=== PATIENT | female | born 1995 | race Caucasian/White ===

== ENCOUNTER 2019-09-23 12:39 | Emergency (ER) | payer MEDICAID ==
[~2019-09-23] VITALS: Ht 157.5 cm; Wt 49.4 kg
[2019-09-23 12:41] VITALS: BP_SYST 121
--- NOTE | 2019-09-23 12:59 | NUR ---
Patient triaged and placed in waiting room. VSS and patient appears in no acute distress at this time. Accompanied by mother, awaiting available bed, and MD notified of need for MSE.
[2019-09-23 15:18] VITALS: BP_SYST 121
--- NOTE | 2019-09-23 15:18 | NUR ---
Patient left without being seen, her mother spoke with registration.
== END 2019-09-23 15:18 | disposition left against medical advice (07) ==
LOC: SED 12:39
DX: R56.9 Unspecified convulsions (principal); R07.89 Other chest pain